=== PATIENT | male | born 1955 | race Caucasian/White ===

== ENCOUNTER 2024-11-09 11:41 | Inpatient (IN) | payer MEDICARE ==
[~2024-11-09] VITALS: Ht 188 cm; Wt 83.9 kg
[~2024-11-09 11:41] MED LIST: ATORVASTATIN CA20 MG PO; B COMPLEX1 EACH; CINNAMON500 MG; FINASTERIDE5 MG PO; FLOMAX0.4 MG PO; GLIMEPIRIDE4 MG; JARDIANCE25 MG; LISINOPRIL5 MG PO; METFORMIN HCL500 MG PO; METOPROLOL SUCC25 MG PO; OZEMPIC0.25 MG/02
[2024-11-09] MEDS: SODIUM CHLORIDE 0.9% 1000ML 1,000 ML ONE (12:21)
[2024-11-09] MEDS: GENTAMICIN 80MG/NS 100 ML 200 ML IV ONE (12:22)
[2024-11-09] MEDS: CEFTRIAXONE 1 GM VIAL ONE (12:22)
[2024-11-09 13:09] LABS: BASOPHILS # (AUTO) 0.1 (0.0-0.1); BASOPHILS % 0.8 % (0.0-1.0); EOSINOPHILS # (AUTO) 0.1 (0.0-0.4); EOSINOPHILS % 1.3 % (0.0-6.0); HEMATOCRIT 49.6 % (38.2-49.6); HEMOGLOBIN 15.2 g/dL (14.0-18.0); LYMPHOCYTES % 13.1 % (18.0-39.1); MEAN CORPUSCULAR HEMOGLOBIN 27.3 pg (28-32); MEAN CORPUSCULAR HGB CONC 30.6 g/dL (31-35); MEAN CORPUSCULAR VOLUME 89.2 fL (81-99); MONOCYTES # (AUTO) 0.6 (0.2-0.8); MONOCYTES % 8.6 % (4.4-11.3); NEUTROPHILS # (AUTO) 5.7 (2.1-6.9); NEUTROPHILS % 75.7 % (38.7-80.0); PLATELET COUNT 258 x10e3/uL (140-360); RED BLOOD COUNT 5.56 x10e6/uL (4.3-5.7); RED CELL DISTRIBUTION WIDTH 14.4 % (11.7-14.4); WHITE BLOOD COUNT 7.47 x10e3/uL (4.8-10.8)
[2024-11-09 13:35] LABS: ANION GAP 17.9 mmol/L (8-16); CREATININE, SERUM 0.9 mg/dL (0.72-1.25); POTASSIUM 4.9 mmol/L (3.5-5.1)
[2024-11-09] MEDS ORDERED: DIPHENHYDRAMINE HCL 25 MG CAP PO PRN (13:45)
[2024-11-09] MEDS ORDERED: ACETAMINOPHEN 1000 MG/100 ML IV PRN (13:45)
[2024-11-09] MEDS ORDERED: ONDANSETRON HCL INJ 2MG/ML 2ML 2 MG/ML VIAL IV PRN (13:45)
[2024-11-09] MEDS ORDERED: ACETAMINOPHEN 1000 MG/100 ML 100 ML IV ONE (14:26)
[2024-11-09] MEDS ORDERED: PROPOFOL IV EMULSION 50 ML IV ONE (14:26)
[2024-11-09] MEDS ORDERED: LIDOCAINE HCL 2% LOCAL INJ 5 ML SDV VIAL INJ ONE ×2 (14:26→14:28)
[2024-11-09] MEDS ORDERED: ONDANSETRON HCL INJ 2MG/ML 2ML 2 MG/ML VIAL ONE (14:38)
[2024-11-09] MEDS ORDERED: DEXAMETHASONE SOD PHOS INJ 4 MG/ML SDV ONE (14:38)
[2024-11-09] MEDS ORDERED: PROPOFOL IV EMULSION 10 MG/ML 20 ML VIAL ONE (15:39)
[2024-11-09 16:38] LABS: BASOPHILS # (AUTO) 0.1 (0.0-0.1); BASOPHILS % 0.6 % (0.0-1.0); EOSINOPHILS # (AUTO) 0.1 (0.0-0.4); EOSINOPHILS % 0.7 % (0.0-6.0); HEMATOCRIT 43.4 % (38.2-49.6); HEMOGLOBIN 13.9 g/dL (14.0-18.0); LYMPHOCYTES # (AUTO) 0.8 (1.0-3.2); MEAN CORPUSCULAR HEMOGLOBIN 27.2 pg (28-32); MEAN CORPUSCULAR VOLUME 84.9 fL (81-99); MONOCYTES # (AUTO) 0.4 (0.2-0.8); MONOCYTES % 4.6 % (4.4-11.3); NEUTROPHILS # (AUTO) 7.1 (2.1-6.9); NEUTROPHILS % 84.4 % (38.7-80.0); PLATELET COUNT 257 x10e3/uL (140-360); RED BLOOD COUNT 5.11 x10e6/uL (4.3-5.7); RED CELL DISTRIBUTION WIDTH 14.1 % (11.7-14.4); WHITE BLOOD COUNT 8.35 x10e3/uL (4.8-10.8)
[2024-11-09] MEDS ORDERED: SENNA-S TABLET PO SCH (17:00)
[2024-11-09 17:07] LABS: ANION GAP 15.6 mmol/L (8-16); CALCIUM 8.6 mg/dL (8.4-10.2); CREATININE, SERUM 0.8 mg/dL (0.72-1.25); POTASSIUM 4.6 mmol/L (3.5-5.1)
[2024-11-09 17:44] VITALS: PULSE 70; O2SAT 99
[2024-11-09] MEDS: SODIUM CHLORIDE 0.9% 1000ML 1,000 ML IV SCH (17:50)
[2024-11-09 18:43] VITALS: BP 109/63; PULSE 70; RESP 14; TEMP 97.9; O2SAT 99
[2024-11-09 20:00] VITALS: PULSE 78; RESP 20; TEMP 97.6; O2SAT 100
[2024-11-09 20:18] VITALS: PULSE 71; RESP 16; O2SAT 97
[2024-11-09] MEDS: SENNA-S TABLET PO SCH (21:11)
[2024-11-10] VITALS (9 sets, daily range): BP systolic 110–127; BP diastolic 58–66; PULSE 77–102; RESP 16–20; TEMP 97.6–100.5; O2SAT 96–99
[2024-11-10] MEDS: PHENAZOPYRIDINE HCL 100 MG TAB PO PRN
[2024-11-10] MEDS: ACETAMINOPHEN/CODEINE 300MG - 30MG TAB PO PRN (00:01)
[2024-11-10 05:24] LABS: BASOPHILS % 0.2 % (0.0-1.0); EOSINOPHILS # (AUTO) 0.1 (0.0-0.4); EOSINOPHILS % 0.5 % (0.0-6.0); HEMOGLOBIN 13.6 g/dL (14.0-18.0); LYMPHOCYTES # (AUTO) 0.6 (1.0-3.2); LYMPHOCYTES % 4.5 % (18.0-39.1); MEAN CORPUSCULAR HEMOGLOBIN 27.2 pg (28-32); MEAN CORPUSCULAR HGB CONC 30.2 g/dL (31-35); MONOCYTES # (AUTO) 0.5 (0.2-0.8); MONOCYTES % 3.8 % (4.4-11.3); NEUTROPHILS # (AUTO) 12.2 (2.1-6.9); NEUTROPHILS % 90.6 % (38.7-80.0); PLATELET COUNT 270 x10e3/uL (140-360); RED CELL DISTRIBUTION WIDTH 13.9 % (11.7-14.4); WHITE BLOOD COUNT 13.45 x10e3/uL (4.8-10.8)
[2024-11-10 05:58] LABS: ANION GAP 16.4 mmol/L (8-16); CALCIUM 8.6 mg/dL (8.4-10.2); CREATININE, SERUM 0.75 mg/dL (0.72-1.25); POTASSIUM 4.4 mmol/L (3.5-5.1)
[2024-11-10] MEDS ORDERED: DEXTROSE 50% SYRINGE 50 ML IV PRN (09:00)
[2024-11-10] MEDS: METFORMIN HCL 500 MG TAB PO SCH (10:05)
[2024-11-10] MEDS: FINASTERIDE 5 MG TAB PO SCH (10:05)
[2024-11-10] MEDS: TAMSULOSIN HCL 0.4 MG CAP PO SCH (10:05)
[2024-11-10] MEDS: METOPROLOL SUCCINATE 25 MG TAB XL PO SCH (10:06)
[2024-11-10] MEDS: INSULIN LISPRO 100 UNIT/1 ML 3ML VIAL SQ SCH (12:39)
[2024-11-10] MEDS: ATORVASTATIN 20 MG TAB PO SCH (20:02)
[2024-11-10] MEDS: LISINOPRIL 2.5 MG TAB PO SCH (20:07)
[2024-11-11] VITALS (11 sets, daily range): BP systolic 96–119; BP diastolic 56–70; PULSE 84–108; RESP 16–20; TEMP 98.5–100.2; O2SAT 95–100
[2024-11-11 05:09] LABS: BASOPHILS # (AUTO) 0.1 (0.0-0.1); BASOPHILS % 0.5 % (0.0-1.0); EOSINOPHILS # (AUTO) 0.2 (0.0-0.4); HEMATOCRIT 38.8 % (38.2-49.6); HEMOGLOBIN 12.7 g/dL (14.0-18.0); LYMPHOCYTES # (AUTO) 1.4 (1.0-3.2); LYMPHOCYTES % 13.4 % (18.0-39.1); MEAN CORPUSCULAR HEMOGLOBIN 27.3 pg (28-32); MEAN CORPUSCULAR HGB CONC 32.7 g/dL (31-35); MEAN CORPUSCULAR VOLUME 83.4 fL (81-99); MONOCYTES # (AUTO) 1.1 (0.2-0.8); MONOCYTES % 10.6 % (4.4-11.3); NEUTROPHILS # (AUTO) 7.4 (2.1-6.9); NEUTROPHILS % 73.1 % (38.7-80.0); PLATELET COUNT 234 x10e3/uL (140-360); RED BLOOD COUNT 4.65 x10e6/uL (4.3-5.7); RED CELL DISTRIBUTION WIDTH 14.3 % (11.7-14.4); WHITE BLOOD COUNT 10.15 x10e3/uL (4.8-10.8)
[2024-11-11 05:42] LABS: ANION GAP 13.5 mmol/L (8-16); CREATININE, SERUM 0.77 mg/dL (0.72-1.25); POTASSIUM 3.5 mmol/L (3.5-5.1)
[2024-11-11] MEDS: ACETAMINOPHEN 325 MG TAB PO PRN (10:05)
[2024-11-12 04:00] VITALS: BP 125/68; PULSE 97; RESP 18; TEMP 99.3; O2SAT 98
[2024-11-12 05:58] LABS: BASOPHILS % 0.5 % (0.0-1.0); EOSINOPHILS # (AUTO) 0.2 (0.0-0.4); EOSINOPHILS % 2.7 % (0.0-6.0); HEMATOCRIT 37.5 % (38.2-49.6); HEMOGLOBIN 12.3 g/dL (14.0-18.0); LYMPHOCYTES # (AUTO) 1.7 (1.0-3.2); LYMPHOCYTES % 22.1 % (18.0-39.1); MEAN CORPUSCULAR HEMOGLOBIN 26.8 pg (28-32); MEAN CORPUSCULAR HGB CONC 32.8 g/dL (31-35); MEAN CORPUSCULAR VOLUME 81.7 fL (81-99); MONOCYTES % 13.3 % (4.4-11.3); NEUTROPHILS # (AUTO) 4.7 (2.1-6.9); PLATELET COUNT 212 x10e3/uL (140-360); RED BLOOD COUNT 4.59 x10e6/uL (4.3-5.7); RED CELL DISTRIBUTION WIDTH 14.4 % (11.7-14.4); WHITE BLOOD COUNT 7.69 x10e3/uL (4.8-10.8)
[2024-11-12 06:19] LABS: ANION GAP 12.2 mmol/L (8-16); CREATININE, SERUM 0.72 mg/dL (0.72-1.25)
[2024-11-12 06:26] LABS: POTASSIUM 3.2 mmol/L (3.5-5.1)
[2024-11-12 07:40] VITALS: PULSE 95; RESP 20; O2SAT 97
[2024-11-12 08:00] VITALS: BP 125/68; PULSE 95; RESP 20; TEMP 99.3; O2SAT 97
[2024-11-12 08:51] VITALS: BP 136/73; PULSE 92; RESP 20; TEMP 97.1; O2SAT 97
[2024-11-12 11:55] VITALS: BP 108/66; PULSE 97; RESP 20; TEMP 98; O2SAT 100
[2024-11-12 14:47] VITALS: PULSE 90; RESP 20; O2SAT 96
[2024-11-12] MEDS ORDERED: LEVOFLOXACIN250 MG PO (16:41)
[2024-11-12] MEDS ORDERED: DIFLUCAN100 MG PO (16:42)
== END 2024-11-12 17:20 | disposition home or self-care (01) | DRG 713 ==
LOC: OR 11:41 → PACU V 13:40 → MED/SURG 17:05
PROVIDERS: ADMIT Internal Medicine; ATTEND Internal Medicine
PROC: BT141ZZ Fluoroscopy of Kidneys, Ureters and Bladder using Low Osmolar Contrast (ICD-10-PCS; 2024-11-09)
PROC: 0TCB8ZZ Extirpation of Matter from Bladder, Via Natural or Artificial Opening Endoscopic (ICD-10-PCS; 2024-11-09)
PROC: 0VB08ZZ Excision of Prostate, Via Natural or Artificial Opening Endoscopic (ICD-10-PCS; principal; 2024-11-09 14:37)
DX: N40.1 Benign prostatic hyperplasia with lower urinary tract symptoms (principal); B37.41 Candidal cystitis and urethritis; N13.8 Other obstructive and reflux uropathy; R33.8 Other retention of urine; R31.0 Gross hematuria; N39.41 Urge incontinence; R35.0 Frequency of micturition; R39.11 Hesitancy of micturition; N32.81 Overactive bladder; I10 Essential (primary) hypertension; E78.00 Pure hypercholesterolemia, unspecified; E11.9 Type 2 diabetes mellitus without complications; Z79.84 Long term (current) use of oral hypoglycemic drugs; M19.91 Primary osteoarthritis, unspecified site; Z79.899 Other long term (current) drug therapy
CPT/HCPCS: 36415; 71046; 74420; 80048; 82948; 83735; 85025; 87086; 88304; 88305; 93005; 94799; 96361; C1758; J0696; J1100; J1580; J2003; J2405; J7030